=== PATIENT | male | born 1975 | race Caucasian/White ===

== ENCOUNTER 2017-01-15 03:45 | Emergency (ER) | payer BC ==
[~2017-01-15] VITALS: Ht 175.3 cm; Wt 86.2 kg
[2017-01-15] MEDS ORDERED: ONDANSETRON HCL 4 MG/2 ML VIAL IV ONE (04:00)
[2017-01-15] MEDS ORDERED: HYDROmorphone HCL 2 MG/ML VL IV ONE (04:00)
[2017-01-15 04:19] LABS: Basophils # (auto) 0.1 uL; Basophils % (auto) 0.9 % (0.0-2.0); Eosinophils # (auto) 0.2 uL; Eosinophils % (auto) 2.3 % (0.0-7.0); Hematocrit 50.5 % (41.0-53.0); Hemoglobin 15.9 g/dL (13.5-17.5); Lymphocytes # (auto) 3.8 uL; Lymphocytes % (auto) 45.8 % (10.0-50.0); Mean Corpuscular Hemoglobin 27.8 pg (28.0-32.0); Mean Corpuscular Hgb Conc. 31.6 g/dL (32.0-36.0); Mean Corpuscular Volume 88.2 fL (80.0-100.0); Mean Platelet Volume 9.2 fL (7.4-10.4); Monocytes # (auto) 0.5 uL; Monocytes % (auto) 5.7 % (0.0-12.0); Neutrophils # (auto) 3.8 uL; Neutrophils % (auto) 45.3 % (37.0-80.0); Platelet Count (auto) 198 10^3/uL (140-450); Red Cell Distribution Width 13.3 % (11.6-16.0); White Blood Cell 8.4 10^3/uL (4.4-10.8)
[2017-01-15 04:41] LABS: Albumin 4.1 g/dL (3.4-5.0); Alkaline Phosphatase 74 U/L (45-117); Amylase 45 U/L (25-115); Anion Gap 9 (5-15); Aspartate Aminotransferase 25 U/L (15-37); BUN/Creatinine Ratio 18.8; Bilirubin, Total 0.4 mg/dL (0.2-1.0); Blood Urea Nitrogen 18 mg/dL (7-18); Calcium 9.4 mg/dL (8.5-10.1); Carbon Dioxide 23 mmol/L (21-32); Chloride 107 mmol/L (98-107); GFR African American 110 mL/min; GFR Non-African American 91 mL/min; Glucose 90 mg/dL (74-106); Potassium 4.2 mmol/L (3.5-5.1); Sodium 139 mmol/L (136-145); Total Protein 7.3 g/dL (6.4-8.2)
[2017-01-15 04:46] LABS: Partial Thromboplastin Time 29.2 sec (22.64-33.71); Prothrombin Time 12.1 sec (9.37-12.3)
[2017-01-15 04:56] LABS: INR 1.17 (0.9-1.15)
[2017-01-15 06:55] VITALS: BP 125/87
== END 2017-01-15 08:05 | disposition home or self-care (01) ==
LOC: ER 03:47
DX: K29.70 Gastritis, unspecified, without bleeding (principal)
CPT/HCPCS: 36415; 74176; 76705; 80053; 82150; 83690; 84484; 85025; 85610; 85730; 93005; 96374; 96375; 99285; J1170; J2405

== ENCOUNTER 2021-05-15 13:44 | Emergency (ER) | payer BC ==
[~2021-05-15] VITALS: Ht 170.2 cm; Wt 81.6 kg
[2021-05-15 14:40] VITALS: BP 163/81
== END 2021-05-15 15:09 | disposition home or self-care (01) ==
LOC: EDBD 13:44 → ER 13:44
DX: L01.00 Impetigo, unspecified (principal); F17.210 Nicotine dependence, cigarettes, uncomplicated